=== PATIENT | female | born 1980 | race Caucasian/White ===

== ENCOUNTER 2019-04-08 06:00 | Inpatient (IN) | payer MEDICAID, OTHER, SELFPAY ==
[2019-04-09] MEDS ORDERED: Methylergonovine 0.2 MG/ML VIAL IM PRN (07:03)
[2019-04-09] MEDS ORDERED: Carboprost 250 MCG/ML AMP IM PRN (07:03)
[2019-04-09] MEDS ORDERED: Diphenoxylate HCl/Atropine Tablet PO PRN (07:03)
[2019-04-09] MEDS ORDERED: NS / Oxytocin 40 units/1000ml 1,000 ML IV PRN (07:03)
[2019-04-09] MEDS ORDERED: HYDROcodone/Acetaminophen 5/325 mg Tablet PO PRN ×3 (07:03→20:46)
[2019-04-09] MEDS ORDERED: Lidocaine 1% (PF) 30 ML VIAL SC PRN (07:03)
[2019-04-09] MEDS ORDERED: hydrALAZINE 20 MG/ML VIAL SLOW IVP PRN ×2 (07:03→20:46)
[2019-04-09] MEDS ORDERED: Ondansetron PF 4 MG/2 ML Vial IVP PRN ×2 (07:03→20:46)
[2019-04-09] MEDS ORDERED: Promethazine HCl 25 MG/ML VIAL IM PRN ×2 (07:03→20:46)
[2019-04-09] MEDS ORDERED: NS w/ Oxytocin 10 units 500 ML IV SCH ×2 (07:03)
[2019-04-09] MEDS ORDERED: Ibuprofen 800 MG TAB PO PRN (07:03)
[2019-04-09] MEDS ORDERED: Misoprostol 200 MCG TAB PR PRN (07:03)
[2019-04-09] MEDS: Lactated Ringer's 1,000 ML IV SCH ×3 (07:12→18:15)
[2019-04-09] MEDS ORDERED: NS w/ Oxytocin 10 units 500 ML ONE (07:31)
[2019-04-09 07:43] LABS: Hemoglobin 11.2 g/dL (12.0-16.0); Mean Corpuscular HGB CONC 33.5 g/dL (32.0-36.0); Mean Corpuscular Hemoglobin 25.7 pg (27.0-31.0); Mean Corpuscular Volume 76.9 fL (78.0-98.0); Mean Platelet Volume 9.6 fL (7.4-10.4); Platelet Count 283 thou/uL (130-400); RBC Distribution Width 13.2 % (11.5-14.5); Red Blood Cell (RBC) Count 4.35 mill/uL (4.20-5.40); White Blood Cell (WBC) Count 16.7 thou/uL (4.8-10.8)
[2019-04-09 08:21] LABS: HBSAg Index 0.14 S/CO (0-0.99); Hep B Surf Ag Non-Reactive S/CO (NonReactive); Syphilis Antibody Nonreactive (Nonreactive); Syphilis Antibody Index 0.04 S/CO (<1.00 Non-Reactive)
[2019-04-09 08:28] VITALS: BMI 31.2
[2019-04-09] MEDS: Butorphanol Tartrate 1 MG/ML VIAL SLOW IVP PRN ×2 (17:13→17:32)
[2019-04-09] MEDS ORDERED: Tranexamic Acid 1,000 MG/10 ML VIAL ONE (17:23)
--- NOTE | 2019-04-09 17:40 | PDOC.EVN ---
Event Note - Event Note Event Note: Called to pt room for post bleeding. Riley placed and vigorous bimanual examination. lower uterine segment with larger clots. no membranes felt. Pt given cytotec 1gm rectally. 0.2 mg methergine IM. Ancef 2gm now. TXA 1gm IV x1. Will continue lysteda and methergine po over the next 24hrs. Total qbl 1295cc. Dr Rivera updated. PT has 2nd IV in place.
[2019-04-09] MEDS ORDERED: Tranexamic Acid 1,000 MG in Sodium Chloride 0.9% 250 ML 250 ML IVPB ONE (17:45)
[2019-04-09] MEDS ORDERED: CEFAZOLIN 2 GM in Premix Bag 1 BAG IVPB SCH (18:45)
[2019-04-09] MEDS ORDERED: Lanolin Ointment 7 GM TUBE TOP PRN (20:46)
[2019-04-09] MEDS ORDERED: NS / Oxytocin 40 units/1000ml 1,000 ML IV SCH (20:46)
[2019-04-09] MEDS ORDERED: Adacel (T-DAP) 0.5 ML SYRINGE IM ONE (20:46)
[2019-04-09] MEDS ORDERED: diphenhydrAMINE 25 MG CAP PO PRN (20:46)
[2019-04-09] MEDS ORDERED: Bisacodyl 10 MG SUPP PR PRN (20:46)
[2019-04-09] MEDS ORDERED: Milk Of Magnesia 30 ML UDCUP PO PRN (20:46)
[2019-04-09] MEDS: Methylergonovine 0.2 MG TAB PO SCH (22:44)
[2019-04-09] MEDS: Ibuprofen 800 MG TAB PO SCH (22:44)
[2019-04-09] MEDS: Docusate Calcium (SURFAK) 240 MG CAP PO SCH (22:45)
[2019-04-10] MEDS: Tranexamic Acid 650 MG TAB PO SCH ×3 (03:22→15:02)
[2019-04-10] MEDS: Methylergonovine 0.2 MG TAB PO SCH ×2 (03:22→09:20)
[2019-04-10 04:42] LABS: Mean Corpuscular HGB CONC 33.7 g/dL (32.0-36.0); Mean Corpuscular Hemoglobin 26.5 pg (27.0-31.0); Mean Corpuscular Volume 78.7 fL (78.0-98.0); Mean Platelet Volume 9.2 fL (7.4-10.4); Platelet Count 238 thou/uL (130-400); RBC Distribution Width 13.1 % (11.5-14.5); Red Blood Cell (RBC) Count 3.38 mill/uL (4.20-5.40); White Blood Cell (WBC) Count 18.5 thou/uL (4.8-10.8)
[2019-04-10] MEDS: Ibuprofen 800 MG TAB PO SCH ×2 (06:15→15:02)
[2019-04-10] MEDS ORDERED: Prenatal Vitamin 1 TAB PO SCH (09:00)
[2019-04-10] MEDS: Docusate Calcium (SURFAK) 240 MG CAP PO SCH (09:20)
[2019-04-10] MEDS: Ferrous Sulfate 325 MG TAB PO SCH ×2 (09:21→17:20)
[2019-04-10 14:20] VITALS: BP 106/56; TEMP 98
--- NOTE | 2019-04-12 05:08 | PQF ---
PRATT, MELGAR KIMANI PATTERSON MD [id number] CLINICAL DOCUMENTATION CLARIFICATION FORM: POST DISCHARGE Addendum to original discharge summary date: ____ Late entry note date: __ DATE: 04-12-2019 ATTN:Kimani Simpson Please exercise your independent, professional judgment in responding to the clarification form. Clinical indicators are provided on the bottom of this form for your review Can you please specify the clinical significance of the indicators below. Please check appropriate box(s): [ ] Acute blood loss anemia [ ] Post-op anemia related to acute blood loss [ ] Other diagnosis please specify [ ] Unable to determine In addition, please specify: Present on Admission (POA): [ ] Yes [ ] No [ ] Unable to determine For continuity of documentation, please document condition throughout progress notes and discharge summary. Thank You. CLINICAL INDICATORS: HP 04/[address] Rivera For Induction of labor PN 04/[address] Valle called to pt room for post bleeding PN 04/[address] Valle- Uterine segment with large clots Laboratory: Hgb: 11.2 (04/09), 9.0(04/10) HCT= 33.5(L), 22.6 L (04/10) RISK FACTORS: HP 04/[address] Rivera- Term IUP 40 weeks HP 04/[address] Rivera- AROM HP 04/[address] Rivera- Advance maternal age TREATMENT: PN 04/[address] Valle- Riley placed and vigorous bimanual examination PN 04/[address] Valle- Given cytotec rectally PN 04/[address] Valle-02.mg methergine IM PN 04/[address] Valle-- will continue lysteda and methergine PO over the next 24 hours (This form is maintained as a part of the permanent medical record) 2014 [employer], [employer]. All Rights Reserved [email or web address] [not provided] MTDD
== END 2019-04-10 18:15 | disposition home or self-care (01) | DRG 807 ==
LOC: L&D 04-09 06:36 → 3SW 04-09 20:45
PROVIDERS: ADMIT Family Medicine; ATTEND Family Medicine
PROC: 10E0XZZ Delivery of Products of Conception, External Approach (ICD-10-PCS; principal; 2019-04-10)
PROC: 10907ZC Drainage of Amniotic Fluid, Therapeutic from Products of Conception, Via Natural or Artificial Opening (ICD-10-PCS; 2019-04-10)
PROC: 3E033VJ Introduction of Other Hormone into Peripheral Vein, Percutaneous Approach (ICD-10-PCS; 2019-04-10)
DX: O72.1 Other immediate postpartum hemorrhage (principal); Z37.0 Single live birth; Z3A.40 40 weeks gestation of pregnancy
CPT/HCPCS: 36415; 51701; 85027; 86780; 86850; 86900; 86901; 87340; J0595; J0690; J2001; J2210; J2590; J3490; J7050